=== PATIENT | female | born 1965 | race Caucasian/White ===

== ENCOUNTER 2017-02-03 13:35 | Emergency (ER) | payer OTHER | END 2017-02-03 16:35 | disposition home or self-care (01) | LOC: ER 13:35 | DX: M51.36 Other intervertebral disc degeneration, lumbar region (principal); I10 Essential (primary) hypertension; F17.210 Nicotine dependence, cigarettes, uncomplicated; Z79.899 Other long term (current) drug therapy; W01.0XXA Fall on same level from slipping, tripping and stumbling without subsequent striking against object, initial encounter | CPT/HCPCS: 96372; J1885 ==

== ENCOUNTER 2017-03-16 16:01 | Emergency (ER) | payer OTHER | END 2017-03-16 17:55 | disposition home or self-care (01) | LOC: ER 16:01 | DX: G89.29 Other chronic pain (principal); M51.16 Intervertebral disc disorders with radiculopathy, lumbar region; I10 Essential (primary) hypertension; F17.210 Nicotine dependence, cigarettes, uncomplicated; Z90.89 Acquired absence of other organs; Z79.899 Other long term (current) drug therapy | CPT/HCPCS: 96374; J1885 ==